=== PATIENT | female | born 1980 | race American Indian/Alaskan Native ===

== ENCOUNTER 2020-06-18 07:04 | Emergency (ER) | payer OTHER ==
--- NOTE | 2020-06-18 07:36 | Event Note ---
ED Screening Note ED Screening Note: sore throat on augment. pcp sent her here due to failing to not getting better This initial assessment/diagnostic orders/clinical plan/treatment(s) is/are subject to change based on patients health status, clinical progression and re- assessment by fellow clinical providers in the ED. Further treatment and workup at subsequent clinical providers discretion. Patient/guardian urged not to elope from the ED as their condition may be serious if not clinically assessed and managed. Initial orders include: strep swab
[2020-06-18] MEDS ORDERED: LIDOCAINE-MPF (1%) 10 MG/1 ML VIAL 5 ML INFILTRATI ONE (08:51)
[2020-06-18] MEDS ORDERED: dexAMETHasone 4 MG/ML VIAL IM ONE (08:51)
[2020-06-18] MEDS ORDERED: IBUPROFEN 800 MG TAB PO ONE (08:52)
--- NOTE | 2020-06-18 09:05 | Emergency Department Report ---
Minor Respiratory - HPI Chief Complaint: Sore Throat Stated Complaint: MOUTH PAIN Time Seen by Provider: 06/18/20 07:32 Pain Location: Throat Severity: moderate Minor Respiratory: Yes Sore Throat, Yes Able to Tolerate Fluids, No Rhinorrhea, No Ear Pain, No Cough, No Sick Contacts, No Hemoptysis, No Chest Pain, No Shortness of Breath, No Fever Other History: 39 YO COMES TO ER WITH SORE THROAT. VSS. ABC INTACT. NO ABSCESS. AMBULATORY AND NON ILL APPEARING. CONTROLLING SECRETIONS. REPORTS GOING TO ANOTHER ER ABOUT 10 DAYS AGO- SHE PULLED OUT BOTTLE OF AUGMENT. WITH PILLS STILL IN IT AND STATES IT IS NOT WORKING. SHE DID NOT SEE PCP. ED Review of Systems ROS: Stated complaint: MOUTH PAIN Other details as noted in HPI Comment: All other systems reviewed and negative ED Past Medical Hx - Past Medical History Hx Hypertension: Yes Hx CVA: Yes Additional medical history: pre-diabetes - Surgical History Past Surgical History?: Yes Additional Surgical History: abd surgery - Family History Family history: no significant - Social History Smoking Status: Never Smoker Substance Use Type: None - Medications Home Medications: Home Medications Medication Instructions Recorded Confirmed Last Taken Type Clindamycin [Clindamycin CAP] 300 mg PO Q8H #30 cap 06/18/20 Unknown Rx Minor Respiratory Exam - Exam General: Vital signs noted. No distress. Alert and acting appropriately. HEENT: Yes Pharyngeal Erythema (NO ABSCESS. NO EXUDATES), Yes Moist Mucous Membranes, No Pharyngeal Exudates, No Rhinorrhea, No Conjuctival Injection, No Frontal Tenderness, No Maxillary Tenderness Ear: Neither TM Bulge, Neither TM Erythema, Neither EAC Pain, Neither EAC Discharge Neck: Yes Supple, No Adenopathy Lungs: Yes Good Air Exchange, No Wheezes, No Ronchi, No Stridor, No Cough, No Labored Respirations, No Retractions, No Use of Accessory Muscles, No Other Abnormal Lung Sounds Heart: Yes Regular, No Murmur Abdomen: Yes Normal Bowel Sounds, No Tenderness, No Peritoneal Signs Skin: No Rash, No Edema Neurologic: Alert and oriented, no deficits. Musculoskeletal: Unremarkable. ED Course Vital Signs 06/18/20 07:34 Temperature 98.6 F Pulse Rate 62 Respiratory 20 Rate Blood Pressure 188/115 [Right] O2 Sat by Pulse 100 Oximetry ED Medical Decision Making - Medical Decision Making Lab Results 06/18/20 Range/Units Unknown Group A Strep Rapid Negative (Negative) Vital Signs 06/18/20 07:34 Temperature 98.6 F Pulse Rate 62 Respiratory 20 Rate Blood Pressure 188/115 [Right] O2 Sat by Pulse 100 Oximetry VSS ABC INTACT TAKING PO CONTROLLING SECRETIONS. MEDICATED HERE IN ER W DECADRON, ROCEPHIN AND MOTRIN. ON DC AMBULATORY TAKING PO AND NAD DC HOME WITH CLINDA RX. INSTRUCTED NOT TO TAKE ANY MORE AUGMENT. EDUCATED SHE NEEDED TO TAKE THE MED GIVEN TO HER TODAY INSTRUCTED OR IT WONT WORK. BP NOTED ELEVATED TODAY BUT PT STATES IT IS BECAUSE OF PAIN. NO CP. NO SOB. NO HEADACHE AND PT IS NEURO INTACT. SHE TAKES BP MEDS BUT DID NOT TAKE IT THIS AM PRIOR TO COMING TO THE ER. SHE WILL GO HOME AND TAKE IT. PT VERBALIZES UNDERSTANDING OF DC PLAN OF CARE. - Differential Diagnosis SORE THROAT Critical care attestation.: If time is entered above; I have spent that time in minutes in the direct care of this critically ill patient, excluding procedure time. ED Disposition Clinical Impression: Pharyngitis, Elevated blood pressure reading Disposition: DC-01 TO HOME OR SELFCARE Is pt being admited?: No Does the pt Need Aspirin: No Condition: Stable Instructions: Pharyngitis Additional Instructions: MONITOR YOUR BLOOD PRESSURE STAY WELL HYDRATED MOTRIN OR TYLENOL FOR PAIN OR FEVER TAKE MEDICATION GIVEN TO YOU TODAY WITH FOOD IT CAN IRRITATE YOUR STOMACH STOP THE AUGMENT. GIVEN PRIOR FOLLOW UP WITH PCP ON MONDAY TO BE SURE YOU ARE GETTING BETTER. Prescriptions: Clindamycin [Clindamycin CAP] 300 mg PO Q8H #30 cap Referrals: [facility] [Other] - 3-5 Days Forms: Work/School Release Form(ED) Time of Disposition: 09:03
[2020-06-18 10:24] VITALS: BP 146/119
== END 2020-06-18 09:15 | disposition home or self-care (01) ==
LOC: ED 07:04
DX: J02.9 Acute pharyngitis, unspecified (principal); R03.0 Elevated blood-pressure reading, without diagnosis of hypertension; Z86.73 Personal history of transient ischemic attack (TIA), and cerebral infarction without residual deficits; Z79.899 Other long term (current) drug therapy
CPT/HCPCS: 87116; 87430; 96372; 99283; J0696; J1100